=== PATIENT | male | born 2000 | race Caucasian/White ===

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

== ENCOUNTER 2023-08-11 19:51 | Emergency (ER) | payer MEDICAID ==
[~2023-08-11] VITALS: Ht 180.3 cm; Wt 100.0 kg
[2023-08-11 20:08] VITALS: BP 120/89; PULSE 106; RESP 18; TEMP 97.8; O2SAT 99
== END 2023-08-11 23:53 | disposition left against medical advice (07) ==
LOC: ER 19:51
DX: L02.511 Cutaneous abscess of right hand (principal); Z53.21 Procedure and treatment not carried out due to patient leaving prior to being seen by health care provider
CPT/HCPCS: 99281

== ENCOUNTER 2024-04-16 16:14 | Emergency (ER) | payer OTHER, MEDICAID ==
[~2024-04-16] VITALS: Ht 180.3 cm; Wt 100.0 kg
[2024-04-16 16:29] VITALS: BP 135/83; PULSE 115; RESP 16; TEMP 99.5; O2SAT 96
[2024-04-16] MEDS ORDERED: dexamethasone sod phosphate 10mg/ml inj IM STA (18:34)
[2024-04-16] MEDS ORDERED: cyclobenzaprine 10mg tablet PO ONE (18:35)
[2024-04-16] MEDS ORDERED: HYDROcodone/acetaminophen 5mg/325mg tablet PO ONE (18:35)
[2024-04-16] MEDS ORDERED: ketorolac trometh inj. 60 MG/2 ML VIAL IM ONE (18:35)
[2024-04-16] MEDS ORDERED: LIDO700A32 TOP (18:37)
[2024-04-16] MEDS ORDERED: CYCL-1 PO (18:37)
[2024-04-16] MEDS ORDERED: PRED20TA PO (18:37)
[2024-04-16] MEDS ORDERED: ketorolac tromethamine 15mg/ml inj. IM ONE (18:40)
== END 2024-04-16 20:01 | disposition home or self-care (01) ==
LOC: ER 16:15
DX: M54.2 Cervicalgia (principal); M54.50 Low back pain, unspecified; V89.2XXA Person injured in unspecified motor-vehicle accident, traffic, initial encounter; Y93.89 Activity, other specified; Y92.89 Other specified places as the place of occurrence of the external cause; Y99.8 Other external cause status
CPT/HCPCS: 71045; 99283

== ENCOUNTER 2025-10-04 18:56 | Emergency (ER) | payer MEDICAID, OTHER ==
[~2025-10-04] VITALS: Ht 180.3 cm; Wt 96.3 kg
[~2025-10-04 18:56] MED LIST: CYCL-1 PO; LIDO-52 TOP
[2025-10-04 19:01] VITALS: BP 134/82; PULSE 112; RESP 15; TEMP 97.7; O2SAT 99
--- NOTE | 2025-10-04 19:03 | Physician Documentation ---
History of Present Illness Stated Complaint: SPIDER BITE Primary Medical Doctor: none HPI MSE: Pleasant 24-year-old male that presents to the emergency department for evaluation of an abscess to the left elbow. Patient reports that he believes he was bitten by a spider approximately 4 days ago. Patient denies fever chills nausea vomiting diarrhea at this time patient reports pain to the elbow. No other symptoms reported at this time. Medication Reconciliation Allergies: Coded Allergies: No Known Allergies (Unverified , 10/04/25) Scheduled Cyclobenzaprine* (Cyclobenzaprine*), 1 TAB PO HS Lidocaine (Lidoderm), 1 PATCH TOP DAILY Past Medical History Past Medical History: No Pertinent History Past Surgical History: no surgical history Alcohol Use: None Drug Use: none Lives In: Home Review of Systems ROS All review of systems negative except as per HPI Physical Exam Physical Exam General: Patient is awake, alert, oriented x4 in no acute distress Head: Normocephalic and atraumatic. Eyes: Conjunctival normal. EOMI. PERRL. ENT: Mucous membranes moist. Neck: Supple, trachea is midline. Chest: Clear to auscultation bilaterally without rales, rhonchi, or wheezes. There is no accessory muscle use or retractions. Cardiac: RRR without murmurs, gallops, or rubs. Extremities: Abscess measuring 2 cm x 2 cm on patient's left elbow with surrounding cellulitis. Able to move elbow without limitation Procedures Procedures Incision and drainage: Status post informed verbal consent patient was sterilely cleaned and draped. 1% lidocaine with epinephrine was utilized to anesthetize patient with 1 cc of lidocaine. 11. Blade utilized to perform incision and drainage of abscess to left elbow with expression of a proximally 2-3 cc of purulent discharge. Abscess was de loculated with sterile probe. Antibiotic ointment applied along with bandage. Patient tolerated procedure well without complication. Total time of procedure 6 minutes Medical Decision Making Additional information obtaine: old records Findings Patient presents to the emergency room with abscess to his left elbow that has per HPI. Differentials include but are not limited to abscess, cellulitis, foreign body, septic arthritis. Physical exam is reassuring he had not feel any imaging or labs is necessary. Antibiotics initiated. Tetanus reported to be up-to-date. ER precautions discussed Differential Dx:Considerations: Bowel obstruction Departure Disposition: HOME / SELF CARE / HOMELESS Impression: Primary Impression: Abscess Condition: Stable Discharge Instructions: Abscess, Care After Referrals: NO PRIMARY CARE PROVIDER (PCP) Prescriptions Sulfamethoxazole/Trimethoprim (Bactrim Ds Tablet) 800 Mg-160 Mg Tablet 1 TAB PO Q12H for 10 Days, #20 TAB Prov: DINESH MCNEIL MD 10/04/25 Signature Scribe Signature: No scribe Attestation: The note accurately reflects work and decisions made by me.Dinesh Mcneil MD 10/04/25 19:52 DEEP GAYTAN Oct 04, 2025 19:03 DINESH MCNEIL MD Oct 04, 2025 19:53
[2025-10-04] MEDS ORDERED: SULF1TAB49 PO (19:52)
[2025-10-04] MEDS: ondansetron 4mg rapidly disintigrating tab PO ONE (20:20)
[2025-10-04] MEDS: sulfamethoxazole/trimethoprim DS (800/160mg) tablet PO ONE (20:20)
== END 2025-10-04 20:39 | disposition home or self-care (01) ==
LOC: ER 18:57
DX: L02.414 Cutaneous abscess of left upper limb (principal)
CPT/HCPCS: 10060; 99283; A6449